=== PATIENT | female | born 1945 | race Caucasian/White ===

== ENCOUNTER 2019-06-02 13:21 | Emergency (ER) | payer MEDICARE, OTHER ==
[2019-06-02 13:31] VITALS: RESP 16
[2019-06-02] MEDS ORDERED: ONDANSETRON 4 MG/2 ML VIAL IVP STA (13:54)
[2019-06-02] MEDS ORDERED: HYDROmorphone 0.5 MG/0.5 ML SYRINGE IVP STA (13:54)
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
--- NOTE | 2019-06-02 14:28 | XR ---
EXAMINATION TYPE: XR elbow limited LT DATE OF EXAM: 06/02/2019 CLINICAL HISTORY: Fall injury with pain. TECHNIQUE: 2 images of the left elbow are attempted. COMPARISON: None FINDINGS: There is posterior dislocation of the olecranon relative to distal humerus. There is suspe cted comminuted fracture of the distal humerus with tiny ossific fragments noted. There may be additi onal larger curvilinear fracture fragment posterior to the distal humerus. IMPRESSION: There is acute posterior dislocation with suspected also fracture injury.
[2019-06-02] MEDS ORDERED: ETOMIDATE 2 MG/ML 10 ML VIAL IV STA (14:33)
--- NOTE | 2019-06-02 15:17 | XR ---
EXAMINATION TYPE: XR elbow limited LT DATE OF EXAM: 06/02/2019 CLINICAL HISTORY: Elbow dislocation. TECHNIQUE: Frontal and lateral images of the left elbow are obtained. COMPARISON: Left elbow x-ray earlier today. FINDINGS: There is successful interval reduction of posterior dislocation injury. Moderate subcutane ous edema radial anterior aspect is now better visualized. There is better visualization of comminute d intra-articular internally displaced fracture of radial head. Tiny ossific fragments along radial a nd dorsal aspect remain present. IMPRESSION: As above.
[2019-06-02 16:10] VITALS: BP 116/73; PULSE 70; TEMP 98.7
== END 2019-06-02 16:09 | disposition home or self-care (01) ==
LOC: EC 13:21
DX: S52.122A Displaced fracture of head of left radius, initial encounter for closed fracture (principal); S53.125A Posterior dislocation of left ulnohumeral joint, initial encounter; Z96.653 Presence of artificial knee joint, bilateral; Z87.891 Personal history of nicotine dependence; Z88.5 Allergy status to narcotic agent; V18.4XXA Pedal cycle driver injured in noncollision transport accident in traffic accident, initial encounter
CPT/HCPCS: 99283; 24600; 99152; 99153; 96374; 96375; 73070; J2405; J1170